=== PATIENT | female | born 1960 | race Caucasian/White ===

== ENCOUNTER 2020-09-04 21:32 | Emergency (ER) | payer MEDICARE, MEDICAID ==
[2020-09-04] MEDS ORDERED: Boostrix 0.5 ML (Tdap) VIAL ONE (21:53)
[2020-09-04] MEDS ORDERED: Bacitracin 1 PK ONE (22:11)
== END 2020-09-04 22:00 | disposition home or self-care (01) ==
LOC: MADERS 21:32
DX: S80.812A Abrasion, left lower leg, initial encounter (principal); Z23 Encounter for immunization; E78.5 Hyperlipidemia, unspecified; E78.00 Pure hypercholesterolemia, unspecified; F17.200 Nicotine dependence, unspecified, uncomplicated; Z79.899 Other long term (current) drug therapy; W20.8XXA Other cause of strike by thrown, projected or falling object, initial encounter
CPT/HCPCS: 90471; 90715